=== PATIENT | male | born 1960 | race Caucasian/White ===

== ENCOUNTER 2019-05-27 08:17 | Outpatient (CLI) | payer BC ==
--- NOTE | 2019-05-27 10:23 | MRI ---
MR OF THE PELVIS WITH AND WITHOUT CONTRAST INDICATION: Elevated PSA COMPARISON: None TECHNIQUE: Multiplanar, multisequence MR images were obtained of the pelvis with and without IV contr ast. 20 cc of MultiHance was utilized for the examination. The examination was reviewed on a separate [employer]) 3-D workstation for multiplanar metric evaluation. FINDINGS: Prostate size: The prostate measured 4.1 x 3.7 x 3.9cm. 28.70 cc. Peripheral zone: No area of restricted diffusion is seen within the peripheral zone. Transitional zone: There is a 2.6 x 1.5 cm T2 hypointense, poorly circumscribed mass within the left mid gland transitional zone extending down to the anterior aspect of the left mid to apical fibromuscular stroma and left apical transitional zone. This lesion demonstrates restricted diffusion on the ADC and DWI images and areas of abnormal dynamic contrast enhancement on the DCE series. Neural vasculature: No evidence of neurovascular invasion Regional lymphadenopathy: None Dynamic contrast enhancement: Lesion within the left aspect of the central zone does demonstrate abno rmal dynamic contrast enhancement. Osseous structures: No suspicious osseous lesion is identified. Additional findings: Colonic diverticulosis. IMPRESSION: 1. PIRADS 5- Very High (clinically significant cancer is highly likely to be present.) 2. There is a 2.6 x 1.5 cm left transitional zone mass that is T2 hypointense, hypointense on the ADC series and with evidence of abnormal dynamic contrast enhancement is suspicious for clinically significant malignancy. Due to its size and the lesion abutting the anterior and left anterolateral m argin of the prostate gland, extraprostatic extension is to be assumed. 3. No overt evidence of neurovascular invasion.
--- NOTE | 2019-05-27 14:52 | NM ---
WHOLE BODY BONE SCAN: HISTORY: Prostate cancer RADIOPHARMACEUTICAL: 31.90 mCi technetium 99m-MDP injected intravenously COMPARISON: None CORRELATION: None FINDINGS: There is increased symmetric uptake seen within the shoulders, wrists, knees, ankles and feet in a de generative pattern. No other abnormal areas of tracer localization are seen in the skeleton to suggest metastatic disease . Tracer excretion through the kidneys is within normal limits. IMPRESSION: No scintigraphic evidence of osseous metastatic disease.
== END 2019-05-27 08:18 | disposition home or self-care (01) ==
LOC: TBSIIMAG 08:17 → NM 08:18
PROVIDERS: ATTEND Urology
DX: C61 Malignant neoplasm of prostate (principal)
CPT/HCPCS: 72197; 78306; A9503

== ENCOUNTER 2019-07-01 07:40 | Outpatient (CLI) | payer BC ==
[2019-07-01 10:40] LABS: Hemoglobin 15.8 g/dL (14.0-18.0); Mean Corpuscular HGB CONC 33.5 g/dL (32.0-36.0); Mean Corpuscular Hemoglobin 30.7 pg (27.0-31.0); Mean Corpuscular Volume 91.6 fL (78.0-98.0); Mean Platelet Volume 8.5 fL (7.4-10.4); Platelet Count 322 thou/uL (130-400); RBC Distribution Width 12.5 % (11.5-14.5); Red Blood Cell (RBC) Count 5.15 mill/uL (4.70-6.10); White Blood Cell (WBC) Count 8.7 thou/uL (4.8-10.8)
[2019-07-01 10:46] LABS: Bacteria/HPF None Seen HPF (None Seen); Bilirubin Negative (Negative); Blood, Urine Negative (Negative); Clarity Clear (Clear); Glucose, Urine (Dipstick) Normal (Negative); Leukocyte Negative Leu/uL (Negative); Nitrite Negative (Negative); Protein, Urine (Dipstick) Negative (Neg-Trace); RBC/HPF 0-3 HPF (0-3); Squamous Epithelial None Seen HPF (0-3); Urobilinogen Normal mg/dL (Less than 2); WBC/HPF None Seen HPF (0-3)
[2019-07-01 11:01] LABS: ALT (SGPT) 23 U/L (8-55); AST (SGOT) 18 U/L (5-34); Albumin 4.5 g/dL (3.5-5.0); Alkaline Phosphatase 98 U/L (40-110); Anion Gap 14 mmol/L (10-20); BUN (Urea Nitrogen) 7 mg/dL (8.4-25.7); Bilirubin, Total 0.8 mg/dL (0.2-1.2); Calc. Creatinine Clearance 0 mL/min (70-130); Carbon Dioxide 26 mmol/L (22-29); Chloride 103 mmol/L (98-107); Estimated GFR-MDRD 78; Globulin 2.5 g/dL (2.4-3.5); Glucose 89 mg/dL (70-105); Potassium 4.6 mmol/L (3.5-5.1); Sodium 138 mmol/L (136-145)
[2019-07-01 11:26] LABS: INR-International Normal Ratio 0.9; PTT 30.1 SEC (22.9-36.1); Prothrombin Time 12.2 SEC (12.0-14.7)
--- NOTE | 2019-07-07 10:10 | EKG ---
Test Reason : Blood Pressure : / mmHG Vent. Rate : 054 BPM Atrial Rate : 054 BPM P-R Int : 168 ms QRS Dur : 092 ms QT Int : 420 ms P-R-T Axes : 070 048 071 degrees QTc Int : 398 ms Sinus bradycardia Otherwise normal ECG No previous ECGs available Confirmed by AMY ORTIZ MD ([id number]) on 07/07/2019 10:10:09 AM Referred By: DANYELLE Confirmed By:AMY ORTIZ MD
== END 2019-07-01 07:41 | disposition home or self-care (01) ==
LOC: LABBT 07:40
PROVIDERS: ATTEND Urology
DX: Z01.818 Encounter for other preprocedural examination (principal); C61 Malignant neoplasm of prostate
CPT/HCPCS: 80053; 81001; 85027; 85610; 85730; 87086; 93005; 93010

== ENCOUNTER 2019-07-01 08:30 | Inpatient (IN) | payer BC ==
[2019-07-01 08:42] VITALS: BMI 29.2
[2019-07-09] MEDS ORDERED: Midazolam HCl 2 mg/2 ml Vial ONE ×2 (06:44→07:26)
[2019-07-09] MEDS ORDERED: Fentanyl 100 MCG/2 ML VIAL ONE ×5 (06:44→15:24)
[2019-07-09] MEDS ORDERED: Dexamethasone 4 mg/ml Vial ONE (06:44)
[2019-07-09] MEDS ORDERED: cefOXitin Sodium/Dextrose,Iso 1 GM in Premix Bag 1 BAG IVPB SCH (06:45)
[2019-07-09] MEDS ORDERED: Gentamicin Sulfate 80 MG in Premix Bag 1 BAG IVPB SCH (06:45)
[2019-07-09] MEDS ORDERED: Bupivacaine/Epinephrine 0.25% 30 ML VIAL ONE (06:48)
[2019-07-09] MEDS ORDERED: Lidocaine 1% w/Epinephrine 1:100K 20 ML VIAL ONE (07:00)
[2019-07-09] MEDS ORDERED: cefOXitin 2 GM VIAL ONE (09:38)
[2019-07-09] MEDS ORDERED: Bupivacaine HCl 0.5%/Epinephrine 1:200,000/PF 30 ml Vial ONE (10:19)
[2019-07-09] MEDS ORDERED: PROPOFOL 200 MG/20 ML VIAL ONE (11:23)
[2019-07-09] MEDS ORDERED: Ondansetron PF 4 MG/2 ML Vial ONE (11:23)
[2019-07-09] MEDS ORDERED: ePHEDrine/0.9% NaCl/PF SYRINGE 50 mg/10 ml ONE (11:23)
[2019-07-09] MEDS ORDERED: Lidocaine 1% PF 5 ML VIAL ONE (11:23)
[2019-07-09] MEDS ORDERED: Rocuronium Bromide 10 MG/ML (10ML VIAL) ONE (11:23)
[2019-07-09] MEDS ORDERED: ePHEDrine 50 MG/ML VIAL ONE (11:23)
[2019-07-09] MEDS ORDERED: PHENYLEPHRINE-NS 100 MCG/ML 10 ML SYRINGE ONE (11:23)
[2019-07-09] MEDS ORDERED: Rocuronium Bromide 50 MG/5 ML VIAL ONE (12:07)
[2019-07-09] MEDS ORDERED: Bacitracin Zinc Ointment 30 gm TUBE ONE (13:11)
[2019-07-09] MEDS ORDERED: Promethazine HCl 25 MG/ML VIAL SLOW IVP PRN (13:53)
[2019-07-09] MEDS ORDERED: Promethazine HCl 25 MG/ML VIAL IM PRN (13:53)
[2019-07-09] MEDS ORDERED: Ondansetron HCl/PF 4 MG/2 ML Vial IVP PRN (13:53)
[2019-07-09] MEDS ORDERED: diphenhydrAMINE 25 MG CAP PO PRN (14:38)
[2019-07-09] MEDS ORDERED: Ondansetron PF 4 MG/2 ML Vial IVP PRN (14:38)
[2019-07-09] MEDS ORDERED: Sodium Chloride 0.9% 1,000 ML IV SCH (14:38)
[2019-07-09] MEDS ORDERED: Hyoscyamine Sulfate SL 0.125 mg Tablet SL PRN (14:38)
[2019-07-09] MEDS ORDERED: oxyCODONE 5 MG TAB PO PRN ×2 (14:38)
[2019-07-09] MEDS ORDERED: hydrALAZINE 20 MG/ML VIAL SLOW IVP PRN (14:38)
[2019-07-09] MEDS ORDERED: Mag-Al 1200 mg/1200 mg/30 ML UDCUP PO PRN (14:38)
[2019-07-09] MEDS ORDERED: Fentanyl 100 MCG/2 ML VIAL SLOW IVP PRN (14:38)
[2019-07-09] MEDS ORDERED: Oxybutynin 5 MG TAB PO PRN (14:38)
[2019-07-09] MEDS ORDERED: cefOXitin 1.5 GM in Sodium Chloride 0.9% 100 ML IVPB SCH (15:00)
--- NOTE | 2019-07-09 16:41 | OP ---
DATE OF PROCEDURE: 07/09/2019 SERVICE: Urology. PREOPERATIVE DIAGNOSIS: Prostate cancer. POSTOPERATIVE DIAGNOSIS: Prostate cancer. PROCEDURE PERFORMED: Robot-assisted laparoscopic prostatectomy with bilateral pelvic lymph node dissection. INDICATIONS FOR PROCEDURE: Mr. Gerard is a 59-year-old white male, who presented with an elevated PSA of 6.4. He underwent prostate biopsy, demonstrating Thorndike 5+4 prostate cancer in 6 out of 12 cores. MRI demonstrated a PI-RADS 5 lesion with no evidence of lymphadenopathy or metastatic disease in the pelvis. We discussed treatment options and the patient elected for a robot-assisted laparoscopic prostatectomy. Risks and benefits have all been discussed and he has agreed to proceed forward. DESCRIPTION OF PROCEDURE: After identification of armband and verification of consent, the patient was brought back to the operating room, where he underwent general anesthesia with endotracheal intubation. He was then placed in the low lithotomy position with the bed in Trendelenburg and prepped and draped in the usual sterile fashion. After appropriate time-out, entry was initially attempted with a Veress needle through the umbilicus. Unfortunately, the insufflation occurred in the preperitoneal space, making further attempts to place the Veress needle difficult. We then opted instead to do an open cutdown with an 11 blade down through the fascia until the peritoneum could be seen. The peritoneum was held up with DeBakey and gently cut open with Metzenbaum scissors. This allowed entry into the peritoneal space. The belly was gently squeezed to try to remove any emphysematous air in the preperitoneal space. A 12-mm balloon trocar was placed into the small incision and insufflation carried out until pneumoperitoneum had been achieved. The camera was brought in to evaluate for any bowel or vascular injuries and none were encountered. I satisfied that everything looked favorable within the peritoneum. A few adhesions had to be taken down on the right hemicolon near the cecum, where this was tethered up to where the environmental engineering assistant port would be close to. These were taken down laparoscopically with Endo Rekha and bowel graspers. The robot ports were then placed in the standard fashion with a 15-mm stapler port to the right of the camera along with an 11 mm environmental engineering assistant port and a 5-mm environmental engineering assistant port on the left for two 8-mm ports. The robot was then docked and the robotic portion of surgery begun. Initially, a few adhesions were taken down on the sigmoid colon to allow for better retraction cephalad. An anterior incision was made on the reflection between the rectovesical space with monopolar cautery and dissection carried until the vas deferens and seminal vesicles were identified. These were then dissected completely free using a combination of monopolar and blunt dissection. Once they were completely dissected on both sides, a small space was made in Denonvilliers' space. However, this appeared fairly stuck and difficult to enter. As such, we opted to finish dissection on this later portion in the case. Attention was then turned to the anterior abdominal wall. An incision was made lateral to the medial umbilical ligament, 1st on the right and carried down into the space of Retzius. Blunt dissection was used until the pubic ramus could be seen. The same was done on the left side with combination of blunt dissection and monopolar cautery. An arching incision was then made near the umbilicus using bipolar to cauterize the medial umbilical ligaments and then monopolar and blunt dissection used to drop the bladder posteriorly. The loose areola tissue was divided to drop the entire bladder until the entire pubic arch could be seen. The pubic arch and the periprosthetic space were then dissected until they were clean and wide open. The preprostatic fat was dissected free from the anterior prostate and then sent off for routine pathologic evaluation. The right endopelvic space was then entered sharply and dissected until the entire space had been open all the way up to the apex of the prostate. The same thing was done on the left endopelvic fascia until both puboprostatic ligaments could be seen with good dissection on both sides. The puboprostatic ligaments were bipolared and then divided with monopolar cautery and endovascular stapler was then brought in for the robot and used to staple the dorsal venous complex. Care was taken to ensure that once the staple had been clamped the catheter was able to freely move and could be completely removed and inserted without any difficulty. The stapler was then fired giving good control of the DVC. The bladder neck was then marked and dissection carried out under monopolar cautery until the entire bladder neck had been completely dissected. The catheter was encountered and dissection carried out until there was good small bladder neck, indicating that we were in the correct space between the bladder and prostate. Dissection was carried down posteriorly until the space was entered of the previously dissected seminal vesicles and vas deferens, which were then lifted anteriorly. Again, there was some difficulty entering the correct plane above Denonvilliers' fascia. The vessel sealer was then brought in and used to divide the pedicles on both sides. This allowed for better anterior retraction of the prostate. At this point, using blunt dissection with the vessel sealer, we went below Denonvilliers' fascia into the perirectal fat, which did allow for a nice space to be created and a non nerve-sparing prostatectomy was performed as the patient has extremely high-risk prostate cancer. The dissection was carried forward using the vessel sealer along both pedicles, taking care not to be too close to the rectum until we were at the apex of the prostate. There were a few areas where the perirectal fat was still stuck onto the prostate, required sharp dissection very close to the prostatic capsule to ensure that a rectal injury was not made. Once the entire posterior surface was completely dissected, the attention was then turned back to the DVC, which was finalized in this dissection using bipolar and monopolar cautery. The urethra was then exposed and sharply dissected, leaving a long urethral trunk to try to spare the patient's external sphincter and his continence. The rectourethralis was then divided sharply, which did result in some bleeding, but care was then needed to avoid rectal injury in this location using a 2-0 Vicryl. A few of the bleeding areas on the rectourethralis were suture ligated, which resulted in good hemostasis. There was mild oozing at this point, so a Surgicel was applied over the location of where the prostate bed was, which resulted in excellent hemostasis. The prostate was then deposited into the right pericolic gutter and insufflation test was then performed in the rectum with the pelvis filled with saline. There were no bubbles indicating that there were no rectal injuries. The fluid was then evacuated and lymph node dissection were then begun on both sides. The right pelvic lymph node packet was first dissected by finding the iliac vein. Dissection was carried up until the circumflex femoral vein was identified forward to the pubic ramus and posteriorly to the obturator nerve. None of these structures were injured. The packet was then deposited in his right pericolic gutter next to the prostate. The same was repeated on the left side for another lymph node packet. The instruments were then switched out for the needle drivers, which were then used to place a Derek stitch using a 2-0 V-Loc suture to approximate the bladder neck and the rectourethralis muscle. The anastomosis was then done in a running fashion with another 2-0 V-Loc suture circumferentially with good apposition of the urethra and bladder neck. The catheter was able to pass easily and was leak tested and found not to have any significant leakage. The sutures were then tied and Raúl was sprayed along the entire periprosthetic space and along both lymph node packet location. The lymph nodes and prostate were then deposited into an Endopouch bag and then a #19 BARTOLOME drain brought along the left side of the patient, where the #3 arm was and placed behind the bladder into the rectovesical space. This was then sutured in using a 3-0 nylon. The robot was then undocked, and a Raghav-Maliha closure was performed on the #15 and #11 environmental engineering assistant port. The specimen was extracted by gently extending the incision on the umbilicus port. After the specimen bag had been transferred to that location, the specimen was able to be removed and this fascia closed with interrupted [id number] 0 Vicryl sutures. Skin at all port sites were closed with 4-0 Monocryl and Dermabond applied. There was noted to be 2 areas just above the umbilicus, where it appeared that the camera port trocar abraded the skin. These are superficial abrasions, but we elected to put back some bacitracin on there and apply a dressing. Final catheter was placed intraoperatively with direct visualization while the robot was still docked, which was a #18-[place] Rogers catheter with 15 mL of sterile water into the balloon, that was used to leak test the bladder and was found to be in good position. The patient was then taken out of positioning, awakened, and taken to PACU for recovery in stable condition. Of note, the patient did receive TAP blocks at the end of the procedure as part of the ERAS protocol since this was not done preoperatively. Additionally, the patient did have a StatLock fixed to his catheter. COMPLICATIONS: None. ESTIMATED BLOOD LOSS: 150 mL. RETAINED TUBES AND DRAINS: A #19 BARTOLOME drain and 18-[place] Rogers catheter with 15 mL of sterile water in the balloon. SPECIMENS: Prostate, bilateral pelvic lymph nodes, as well as preprostatic fat. DISPOSITION: The patient will be admitted to the hospital for postoperative recovery. After he is comfortable and deemed stable, we will take his BARTOLOME drain out and can be discharged home with followup on an outpatient basis. Job ID: [id number]
[2019-07-09] MEDS: traMADol HCl 50 MG TAB PO SCH ×2 (17:32→23:17)
[2019-07-09] MEDS: Acetaminophen 500 MG TAB PO SCH ×2 (17:32→23:17)
[2019-07-09] MEDS: cefOXitin 1.5 GM in Sodium Chloride 0.9% 100 ML IVPB SCH (19:40)
[2019-07-09] MEDS ORDERED: Lisinopril 10 MG TAB PO SCH (21:00)
[2019-07-09] MEDS: Ketorolac Tromethamine 30 MG/ML VIAL IVP SCH (21:15)
[2019-07-09] MEDS: Docusate 100 MG CAP PO SCH (21:16)
[2019-07-10] MEDS: cefOXitin 1.5 GM in Sodium Chloride 0.9% 100 ML IVPB SCH ×2 (04:19→13:43)
[2019-07-10] MEDS: Ketorolac Tromethamine 30 MG/ML VIAL IVP SCH ×2 (05:27→13:44)
[2019-07-10] MEDS: traMADol HCl 50 MG TAB PO SCH ×2 (05:28→13:42)
[2019-07-10] MEDS: Acetaminophen 500 MG TAB PO SCH ×2 (05:28→13:43)
[2019-07-10 05:38] LABS: #Lymphocytes 0.9 thou/uL (1.20-3.40); #Monocytes 1.1 thou/uL (0.11-0.59); #Neutrophils 13.5 thou/uL (1.40-6.50); %Lymphocytes 5.8 % (21.0-51.0); %Monocytes 6.9 % (0.0-10.0); %Neutrophils 87.2 % (42.0-75.0); Hemoglobin 12.8 g/dL (14.0-18.0); Mean Corpuscular Hemoglobin 31.1 pg (27.0-31.0); Mean Corpuscular Volume 91.5 fL (78.0-98.0); Mean Platelet Volume 7.8 fL (7.4-10.4); Platelet Count 281 thou/uL (130-400); RBC Distribution Width 12.3 % (11.5-14.5); Red Blood Cell (RBC) Count 4.12 mill/uL (4.70-6.10); White Blood Cell (WBC) Count 15.5 thou/uL (4.8-10.8)
[2019-07-10 06:02] LABS: Anion Gap 13 mmol/L (10-20); BUN (Urea Nitrogen) 6 mg/dL (8.4-25.7); Calc. Creatinine Clearance 107 mL/min (70-130); Calcium 8.1 mg/dL (7.8-10.44); Carbon Dioxide 20 mmol/L (22-29); Chloride 103 mmol/L (98-107); Estimated GFR-MDRD 77; Glucose 125 mg/dL (70-105); Sodium 131 mmol/L (136-145)
[2019-07-10] MEDS ORDERED: Vit A,C & E/Lutein/Minerals Tablet PO SCH (09:00)
[2019-07-10] MEDS ORDERED: FLU VACC QS2019-20(6MOS UP)/PF 60 MCG/0.5 ML SYRINGE IM ONE (09:00)
[2019-07-10] MEDS: Docusate 100 MG CAP PO SCH (09:24)
[2019-07-10 11:16] VITALS: BP 127/79; TEMP 97.6
--- NOTE | 2019-07-10 17:07 | PRG ---
DATE OF SERVICE: 07/10/2019 SUBJECTIVE: The patient states he is feeling good. He has mild pain which was controlled with pain medication. He was up walking around today. He was taught how to take care of his catheter. He is tolerating a regular diet and has been able to keep down clear liquids. He has not passed any gas or had a bowel movement, although he does not feel bloated or nauseated. Denies any chest pain or shortness of breath. OBJECTIVE: VITAL SIGNS: Temperature 97.6, pulse 66, respirations 16, blood pressure 127/79, and saturation 99% on room air. GENERAL: No apparent distress. Communicative and alert. CARDIOVASCULAR: Regular rate and rhythm. ABDOMEN: Soft, mildly tender to palpation. Incision is clean, dry, and intact. Nondistended. Positive bowel sounds. : Rogers catheter in place, secured with clear yellow urine. EXTREMITIES: No clubbing, cyanosis, or edema. LABORATORY EVALUATION: Full set of labs are in the [employer] system, which I have reviewed. Of note, the patient's white count is 15.5, hemoglobin 12.8. Creatinine of 0.99, sodium of 131. ASSESSMENT AND PLAN: A 59-year-old white male, status post robotic prostatectomy, postop day #1, healing very well and appropriately, no mental status changes or confusion. Sodium is likely spurious and probably, would be corrected with cessation of IV fluids and resumption of a normal diet. I did tell him that if he is having increasing confusion, headaches, or dizziness, he should notify me. I think the patient can be discharged today. I will take his BARTOLOME drain out as it only put out 130 mL overnight. I have gone over all the patient's discharge instructions, and he is good to go with his Rogers catheter in place and will follow up with me in 2 weeks for a void trial. Job ID: [id number]
--- NOTE | 2019-07-10 21:28 | DIS ---
DATE OF ADMISSION: 07/09/2019 DATE OF DISCHARGE: 07/10/2019 ADMITTING DIAGNOSIS: Prostate cancer. DISCHARGE DIAGNOSIS: Prostate cancer. PROCEDURE PERFORMED: Robotic assisted laparoscopic prostatectomy with bilateral pelvic lymph node dissection. BRIEF HISTORY: Mr. Gerard is a 59-year-old white male with history of a grade 2/5 prostate cancer, Jennifer 5 + 4. He elected for a prostatectomy. The full H and P can be found in the scanned portion of the [employer] system. HOSPITAL COURSE: After surgery (please see operative note for details), the patient was admitted to the hospital with a Rogers catheter, secured with a StatLock and BARTOLOME drain. He was on clear liquids overnight and was advanced to a regular diet in the morning, which he tolerated well. He was able to keep down fluids and regular food. He was able to get up and walk on postop day #1. His pain was controlled with oral pain medication. He did not require any IV pain medication. He was instructed on how to take care of his catheter. His labs looked acceptable and he was cleared for discharge after leg bag teaching. DISPOSITION: Discharge to home with Rogers catheter. DISCHARGE CONDITION: Good. DISCHARGE MEDICATIONS: Include resuming all of his home medications. In addition, he will be given mg 1 to 2 tablets p.o. q.4 hours p.r.n. pain and Colace 100 mg p.o. b.i.d. as well as a levofloxacin 250 mg single tablets to take 2 hours before his catheter removal. I have gone over all of discharge instructions and I will see him back in 2 weeks for a void trial. Job ID: [id number]
--- NOTE | 2019-07-13 04:27 | PQF ---
KAY VERAS JR, ROBIN MD [id number] CLINICAL DOCUMENTATION CLARIFICATION FORM: POST DISCHARGE Addendum to original discharge summary date: ____ Late entry note date: __ DATE:07/13/19 ATTN:Alena Maradiaga Please exercise your independent, professional judgment in responding to the clarification form. Clinical indicators are provided on the bottom of this form for your review Please check appropriate box(s): [ ] Hyponatremia [ X] Insignificant laboratory findings [ ] Other diagnosis [ ] Unable to determine In addition, please specify: Present on Admission (POA): [ ] Yes [ ] No [ ] Unable to determine For continuity of documentation, please document condition throughout progress notes and discharge summary. Thank You. CLINICAL INDICATORS - SIGNS / SYMPTOMS/ LABS are present in the medical record: Labs:Sodium: 131 DS 07/10 "He was on clear liquid overnight" DS 07/10 "s/p Robotic prostatectomy" RISK FACTORS HP 06/24-64 years old male HP 06/24-HTN HP 06/24-BPH OP Note 07/09-s/p lap prostatectomy DS 07/10-prostate cancer TREATMENT MAR 07/09-IVF Collected 07/09-Laboratory monitoring (This form is maintained as a part of the permanent medical record) 2014 [employer]. All Rights Reserved [email or web address] [not provided] [email or web address]
== END 2019-07-10 15:15 | disposition home or self-care (01) | DRG 708 ==
LOC: SURG A 07-09 05:49 → SJJU 07-09 15:57
PROVIDERS: ADMIT Urology; ATTEND Urology
PROC: 0VT04ZZ Resection of Prostate, Percutaneous Endoscopic Approach (ICD-10-PCS; principal; 2019-07-09)
PROC: 0VT34ZZ Resection of Bilateral Seminal Vesicles, Percutaneous Endoscopic Approach (ICD-10-PCS; 2019-07-09)
PROC: 07BC4ZX Excision of Pelvis Lymphatic, Percutaneous Endoscopic Approach, Diagnostic (ICD-10-PCS; 2019-07-09)
PROC: 0VBQ4ZZ Excision of Bilateral Vas Deferens, Percutaneous Endoscopic Approach (ICD-10-PCS; 2019-07-09)
PROC: 8E0W4CZ Robotic Assisted Procedure of Trunk Region, Percutaneous Endoscopic Approach (ICD-10-PCS; 2019-07-09)
DX: C61 Malignant neoplasm of prostate (principal); I10 Essential (primary) hypertension; N40.1 Benign prostatic hyperplasia with lower urinary tract symptoms; Z79.899 Other long term (current) drug therapy
CPT/HCPCS: 36415; 80048; 85025; 86850; 86900; 86901; 88309; J0670; J0694; J1100; J1885; J2001; J2250; J2405; J2704; J3010; J3490